=== PATIENT | female | born 1990 | race African-American/Black ===

== ENCOUNTER 2016-04-08 18:38 | Emergency (ER) | payer OTHER ==
[2016-04-08] MEDS ORDERED: HYDROcod/ACETAM 5/325 MG TABLET PO STA (21:07)
[2016-04-08] MEDS ORDERED: HYDROcod/ACETAM 5/325 MG TABLET ONE (21:13)
== END 2016-04-08 21:19 | disposition home or self-care (01) ==
DX: R10.9 Unspecified abdominal pain (principal); M54.5 Low back pain
CPT/HCPCS: 81001; 81025; 99283; A9270

== ENCOUNTER 2019-06-06 17:02 | Emergency (ER) | payer OTHER ==
[2019-06-06 17:21] LABS: RAPID STREP SCREEN Negative (Negative)
--- NOTE | 2019-06-06 17:25 | ED Physician Documentation ---
PD HPI HEENT - Stated complaint Stated Complaint: SORE THROAT/EAR PX - Chief complaint Chief Complaint: Heent - History obtained from History obtained from: Patient - Additional information Additional information: Mrs. Swift is a 28-year-old female is here today with a 3-day history of a sore throat. She developed right-sided ear pain today. She denies any runny nose, congestion, cough, myalgias, dyspnea, or fevers. Has no chills. Has no abdominal pain, nausea, or vomiting. No urinary complaints. She denies any chronic medical history. She states her daughter was recently tested for strep and was positive. She was treated with a single dose of Bicillin for this last week. She has no further complaints or concerns at this time. Review of Systems Constitutional: denies: Fever Eyes: denies: Discharge Ears: reports: Ear pain. denies: Loss of hearing, Foreign body, Reviewed and negative Nose: denies: Rhinorrhea / runny nose, Congestion Throat: reports: Sore throat Respiratory: denies: Dyspnea, Hemoptysis GI: denies: Abdominal Pain, Nausea, Vomiting : denies: Dysuria, Frequency, Hesitancy Skin: denies: Rash Musculoskeletal: denies: Neck pain Neurologic: denies: Headache PD PAST MEDICAL HISTORY - Past Medical History Past Medical History: Yes - Past Surgical History Past Surgical History: Yes /STATION MANAGER: section - Present Medications Home Medications: Ambulatory Orders Medication Instructions Recorded Confirmed Hydrocodone/Acetaminophen 1 - 2 each PO Q6H PRN #10 tablet 04/08/16 [Hydrocodon-Acetaminophen 5-325] Amoxicillin 500 mg PO TID #21 capsule 06/06/19 - Allergies Allergies/Adverse Reactions: Allergies Allergy/AdvReac Type Severity Reaction Status Date / Time No Known Drug Allergies Allergy Verified 06/06/19 17:08 - Social History Does the pt smoke?: No Smoking Status: Never smoker Does the pt drink ETOH?: Yes Does the pt have substance abuse?: No - Immunizations Immunizations are current?: Yes - POLST Patient has POLST: No PD ED PE NORMAL - Vitals Vital signs reviewed: Yes - General General: Alert and oriented X 3, No acute distress, Well developed/nourished - HEENT HEENT: Other. No: Moist mucous membranes, Pharynx benign, Dentition benign - Neck Neck: Supple, no meningeal sign - Cardiac Cardiac: RRR - Respiratory Respiratory: No respiratory distress, Clear bilaterally - Derm Derm: Normal color - Extremities Extremities: No deformity - Neuro Neuro: Alert and oriented X 3, No motor deficit, No sensory deficit, Normal speech Motor: Obeys Commands Verbal: Oriented Results - Vitals Vitals: Vital Signs - 24 hr 06/06/19 17:04 Temperature 36.7 C Heart Rate 90 Respiratory 16 Rate Blood Pressure 130/82 H O2 Saturation 100 Oxygen O2 Source Room air - Labs Labs: Laboratory Tests 06/06/19 17:10 Group A Strep Rapid Negative PD MEDICAL DECISION MAKING - ED course Complexity details: d/w patient (discussed viral etiology vs bacterial infection. Discussed screening RST. With her erythematous TM, sore throat, and comfirmed strep exposure we will cover her with amoxicillin. ), other (Discussed work-up options. She has a daughter at home who is strep positive. She also has a erythematous Right tympanic membrane. We will cover her with oral antibiotics. She will return to the ER anytime for worsening symptoms.) Departure - Departure Disposition: Home, Self Care Clinical Impression: Otitis media, Acute pharyngitis Condition: Stable Instructions: ED Otitis Media Acute Adult, ED Strep Pharyngitis Poss, ED Pharyngitis Viral Prescriptions: Amoxicillin 500 mg PO TID #21 capsule Comments: Maintain oral hydration. You may continue Tylenol 500 mg every 6-8 hours. He may also use ibuprofen 600 mg every 8 hours. Use the provided antibiotics as prescribed. Seek care at anytime for any emergent changes as needed.
[2019-06-06 17:45] VITALS: BP 124/71
== END 2019-06-06 17:45 | disposition home or self-care (01) ==
LOC: ED 17:02
DX: J02.9 Acute pharyngitis, unspecified (principal); H66.91 Otitis media, unspecified, right ear; Z20.818 Contact with and (suspected) exposure to other bacterial communicable diseases
CPT/HCPCS: 87070; 87430; 99283; 99284